=== PATIENT | male | born 1995 | race Caucasian/White ===

== ENCOUNTER 2018-04-29 14:53 | Emergency (ER) | payer BC ==
[~2018-04-29] VITALS: Ht 190.5 cm; Wt 95.3 kg
[~2018-04-29 14:53] MED LIST: AMOXICILLIN875 MG PO; CYMBALTA20 MG PO
[2018-04-29] MEDS ORDERED: ZOFRAN4 MG PO (16:13)
[2018-04-29] MEDS ORDERED: TORADOL 10 MG T10 MG PO (16:13)
[2018-04-29 16:31] VITALS: BP 138/69
== END 2018-04-29 16:33 | disposition home or self-care (01) ==
LOC: M.ERS 14:53
DX: R51 Headache (principal)